=== PATIENT | female | born 1985 | race American Indian/Alaskan Native ===

== ENCOUNTER 2017-09-06 21:20 | Emergency (ER) | payer MEDICAID ==
[2017-09-06 23:42] LABS: Basophils % (Auto) 0.2 % (0.0-1.8); Hematocrit 39.1 % (30.3-42.9); Hemoglobin 12.6 gm/dl (10.1-14.3); Lymphocytes # (Auto) 0.7 K/mm3 (1.2-5.4); Lymphocytes % (Auto) 10.4 % (13.4-35.0); Mean Corpuscular HGB Conc 32 % (30-34); Mean Corpuscular Hemoglobin 31 pg (28-32); Mean Corpuscular Volume 95 fl (79-97); Monocytes # (Auto) 0.2 K/mm3 (0.0-0.8); Monocytes % (Auto) 2.5 % (0.0-7.3); Platelet Count 321 K/mm3 (140-440); Red Blood Count 4.11 M/mm3 (3.65-5.03)
[2017-09-06 23:57] LABS: Red Cell Distribution Width 21.2 % (13.2-15.2)
[2017-09-07 00:07] LABS: Alanine Aminotransferase 11 units/L (7-56); Albumin 4.6 g/dL (3.9-5); BUN/Creatinine Ratio 8; Blood Urea Nitrogen 5 mg/dL (7-17); Calcium 9.2 mg/dL (8.4-10.2); Hemolysis Index 24
--- NOTE | 2017-09-07 13:14 | Emergency Department Report ---
Vomiting/Diarrhea - HPI Chief Complaint: Nausea/Vomiting/Diarrhea Stated Complaint: ABDOMINAL PAIN Time Seen by Provider: 09/07/17 13:03 Duration: 2 Days Severity: mild Nausea/Vomiting Severity: Moderate Diarrhea Severity: None Pain Location: Epigastric Pain Severity: Mild Symptoms: No Watery Diarrhea, No Bloody diarrhea, No Fever, No Able to Tolerate Fluids, No Recent Unusual Foods, No Recent Untreated Water, No Recent use of Antibiotics, No Family w/ Similar Symptoms, No Contacts w/ Similar Symptoms, No Rash, No Hematuria, No Recent URI Symptoms Other History: Patient is a 32-year-old Female who is presenting with nausea vomiting. Patient states she has a history of gastroparesis. Patient states that she has been unable to keep anything down for the last 2 days. ED Review of Systems ROS: Stated complaint: ABDOMINAL PAIN Other details as noted in HPI Comment: All other systems reviewed and negative ED Past Medical Hx - Past Medical History Additional medical history: vitamin B12 defic., gastroparesis - Surgical History Additional Surgical History: tubal ligation - Social History Smoking Status: Never Smoker Substance Use Type: None - Medications Home Medications: Home Medications Medication Instructions Recorded Confirmed Last Taken Type Ondansetron [Zofran TAB] 4 mg PO Q6HR PRN #20 tablet 02/02/15 Unknown Rx oxyCODONE /ACETAMINOPHEN [Percocet 1 tab PO Q6HR PRN #20 tablet 02/02/15 Unknown Rx 5/325] Ondansetron [Zofran Odt] 4 mg PO Q8HR PRN #10 tab.rapdis 09/07/17 Unknown Rx Vomiting Diarrhea Exam - Exam General: Vital signs noted. No distress. Alert and acting appropriately. HEENT: Yes Moist Mucous Membranes, No Pharyngeal Erythema, No Pharyngeal Exudates, No Rhinorrhea, No Conjuctival Injection, No Frontal Tenderness, No Maxillary Tenderness Neck: No Adenopathy, No Rigidity Lungs: Yes Clear Lung Sounds, Yes Good Air Exchange, No Wheezes, No Stridor, No Cough, No Nasal Flaring, No Retractions, No Use of Accessory Muscles Heart exam: Regular: Yes, Murmur: No, Tachycardia: No Abdomen: Tenderness: Yes (mild epigastric there is no rebound or guarding), Peritoneal Signs: No, Distention: No, Hyperactive Bowel sounds: No Skin exam: Rash: No, Edema: No, Normal turgor: Yes Neurologic: Alert and oriented, no deficits. Musculoskeletal: Unremarkable. ED Course Vital Signs 09/06/17 09/07/17 21:45 08:46 Temperature 98.3 F 98.5 F Pulse Rate 67 66 Respiratory 18 18 Rate Blood Pressure 132/94 110/72 O2 Sat by Pulse 100 100 Oximetry ED Medical Decision Making - Lab Data Result diagrams: 09/06/17 23:37 09/06/17 23:37 Critical care attestation.: If time is entered above; I have spent that time in minutes in the direct care of this critically ill patient, excluding procedure time. ED Disposition Clinical Impression: Gastroparesis Disposition: DC-01 TO HOME OR SELFCARE Is pt being admited?: No Does the pt Need Aspirin: No Condition: Stable Prescriptions: Ondansetron [Zofran Odt] 4 mg PO Q8HR PRN #10 tab.rapdis PRN Reason: Nausea Referrals: ACOSTA DAVIDSON MD [Primary Care Provider] - 3-5 Days
[2017-09-07] MEDS ORDERED: ZOFRAN ODT PO ONE ×2 (14:13→17:00)
[2017-09-07] MEDS ORDERED: NACL 0.9% 1000 ML 1,000 ML IV ONE (14:13)
[2017-09-07] MEDS ORDERED: ZOFRAN ODT ONE (17:02)
[2017-09-07 17:19] VITALS: BP 140/91
== END 2017-09-07 17:18 | disposition home or self-care (01) ==
LOC: ED 21:20
DX: K31.84 Gastroparesis (principal); Z98.51 Tubal ligation status
CPT/HCPCS: 36415; 80053; 84703; 85025; 96360; 96361; 99283; J7030; Q0162